=== PATIENT | male | born 1965 ===

== ENCOUNTER 2021-05-02 09:06 | Inpatient (IN) | payer BC ==
[~2021-05-02] VITALS: Ht 177.8 cm; Wt 78.9 kg
[~2021-05-02 09:06] MED LIST: CYCL10 PO; DIAZ2; METPRE4DP PO
[2021-05-02 10:29] LABS: Alanine Aminotransfer (ALT/SGP 108 U/L (12-78); Albumin, Blood 3.3 g/dL (3.4-5.0); Albumin/Globulin Ratio 0.8 (0.8-1.8); Alk Phos 58 U/L (50-136); Anion Gap 8 mmol/L (6-16); Aspartate Aminotrans (AST/SGOT 105 U/L (12-37); Bilirubin, Total 0.7 mg/dL (0.1-1.0); Blood Urea Nitrogen 17 mg/dL (8-24); Bun/Creatinine Ratio 16.5 (12.0-20.0); CO2, Blood 25 mmol/L (21-32); CPK Creatine Kinase 244 U/L (39-308); Calcium, Blood 8.6 mg/dL (8.5-10.1); Chloride, Blood 99 mmol/L (98-108); Creatinine, Blood 1.03 mg/dL (0.60-1.20); Globulin, Blood 3.9 g/dL (2.2-4.0); Glomerular Filtration Rate >60 (60-); Glucose, Blood 105 mg/dL (70-99); Potassium, Blood 3.5 mmol/L (3.5-5.5); Sodium, Blood 132 mmol/L (136-145); Total Protein, Blood 7.2 g/dL (6.4-8.2)
[2021-05-02] MEDS ORDERED: CEFDINIR300 M4 PO (16:25)
[2021-05-02] MEDS ORDERED: AZIT250 PO (16:25)
[2021-05-02] MEDS ORDERED: Stromectol3 MG PO (18:13)
--- NOTE | 2021-05-02 18:30 | NUR ---
Assumed Care Received report from HOLLEY Walters RN. Patient arrived via gurney, self transferred to bed. A/O, independent. Denies pain, nausea, vomiting. Arrived with 3L O2, sats at 88-90, oxygen increased to 4L. Settled to room, call light in reach. Bed in lowest position. Patient calls appropriately for needs. Home meds in room.
[2021-05-02 19:40] LABS: BASOPHILS ABSOLUTE AUTO 0.02 K/mm3 (0.00-0.23); BASOPHILS PERCENT AUTO 1 % (0-2); EOSINOPHILS PERCENT AUTO 0 % (0-6); Hematocrit 49.1 % (37.0-53.0); Hemoglobin 16.4 g/dL (13.5-17.5); IMMATURE GRAN ABSOLUTE AUTO 0.01 K/mm3 (0.00-0.10); IMMATURE GRAN PERCENT AUTO 0 % (0-1); LYMPHOCYTES ABSOLUTE AUTO 0.87 K/mm3 (0.84-5.20); LYMPHOCYTES PERCENT AUTO 21 % (21-46); MONOCYTES PERCENT AUTO 12 % (4-13); Mean Corpuscular HGB 29.6 pg (26.0-34.0); Mean Corpuscular HGB Conc 33.4 g/dL (31.5-36.5); Mean Corpuscular Volume 89 fL (80-100); Mean Platelet Volume 9.4 fL (9.1-12.4); NEUTROPHILS ABSOLUTE AUTO 2.73 K/mm3 (1.96-9.15); NEUTROPHILS PERCENT AUTO 66 % (41-73); Platelet Count 282 K/mm3 (150-400); RDW Coefficient Variation 12.5 % (11.7-14.2); RDW Standard Deviation 41.1 fL (35.1-46.3); Red Blood Cell Count 5.54 M/mm3 (4.30-5.90); White Blood Cell Count 4.13 K/mm3 (4.00-11.30)
--- NOTE | 2021-05-03 03:21 | NUR ---
PT DESATURATED PT DID DESATURATE TO MID 80'S% O2 SAT. I DID CALL RESPIRATORY THERAPY FOR ASSISTANCE. O2 WAS SET TO 15 LPM WITH A NON-REBREATHER. RESPIRATORY THERAPY WAS ABLE TO REMOVE NON-REBREATHER AND JUST GO WITH A HIGH FLOW O2 CANNULA. PT IS STILL ON 15 LPM O2
--- NOTE | 2021-05-03 03:58 | NUR ---
SHIFT SUMMARY ADMITTED FOR COVID+. FULL CODE. DROPLET PRECAUTIONS FOR COVID+. TELEMETRY: NSR @ 72 BPM. HE REPORTS DIARRHEA. HE DESATURATED ONCE THIS SHIFT (SEE PREVIOUS NOTE). CONTINUOUS PULSE OX IN PLACE. NOW ON 15 LPM HIGH FLOW O2 VIA NC. IVERMECTIN IS SCHEDULED, SOLUMEDROL IS SCHEDULED. IV ANTIB RX ARE SCHEDULED. HEPARIN IS SCHEDULED. HE REPORTS DIARRHEA. CARDIAC DIET. A&O X4, INDEPENDENT.
[2021-05-03 06:39] LABS: BASOPHILS PERCENT AUTO 0 % (0-2); EOSINOPHILS PERCENT AUTO 0 % (0-6); Hematocrit 43.2 % (37.0-53.0); Hemoglobin 14.8 g/dL (13.5-17.5); IMMATURE GRAN ABSOLUTE AUTO 0.03 K/mm3 (0.00-0.10); IMMATURE GRAN PERCENT AUTO 1 % (0-1); LYMPHOCYTES PERCENT AUTO 23 % (21-46); MONOCYTES ABSOLUTE AUTO 0.32 K/mm3 (0.16-1.47); MONOCYTES PERCENT AUTO 12 % (4-13); Mean Corpuscular HGB 29.6 pg (26.0-34.0); Mean Corpuscular HGB Conc 34.3 g/dL (31.5-36.5); Mean Corpuscular Volume 86 fL (80-100); NEUTROPHILS ABSOLUTE AUTO 1.63 K/mm3 (1.96-9.15); NEUTROPHILS PERCENT AUTO 63 % (41-73); Platelet Count 312 K/mm3 (150-400); RDW Coefficient Variation 12.2 % (11.7-14.2); RDW Standard Deviation 38.9 fL (35.1-46.3); White Blood Cell Count 2.58 K/mm3 (4.00-11.30)
[2021-05-03 07:20] LABS: Alanine Aminotransfer (ALT/SGP 102 U/L (12-78); Albumin, Blood 2.7 g/dL (3.4-5.0); Albumin/Globulin Ratio 0.8 (0.8-1.8); Alk Phos 50 U/L (50-136); Anion Gap 8 mmol/L (6-16); Aspartate Aminotrans (AST/SGOT 91 U/L (12-37); Bilirubin, Total 0.5 mg/dL (0.1-1.0); Blood Urea Nitrogen 20 mg/dL (8-24); Bun/Creatinine Ratio 27.3 (12.0-20.0); CO2, Blood 24 mmol/L (21-32); Calcium, Blood 8.4 mg/dL (8.5-10.1); Chloride, Blood 106 mmol/L (98-108); Creatinine, Blood 0.73 mg/dL (0.60-1.20); Globulin, Blood 3.6 g/dL (2.2-4.0); Glomerular Filtration Rate >60 (60-); Glucose, Blood 140 mg/dL (70-99); Potassium, Blood 3.9 mmol/L (3.5-5.5); Sodium, Blood 138 mmol/L (136-145); Total Protein, Blood 6.3 g/dL (6.4-8.2)
[2021-05-03 09:10] LABS: HBSAG SCREEN Negative (Negative); HEP B CORE AB, TOT Negative (Negative); HEP C VIRUS AB <0.1 (0.0-0.9)
--- NOTE | 2021-05-03 11:41 | NUR ---
Admit: 05/02/21 Discharge: TBD PCP: Beatris Pelayo Home [facility]: None DME: Oxygen equipment delivered 05/01/21 Family contact: Tila [phone]
--- NOTE | 2021-05-03 13:33 | NUR ---
FLUTICASONE NASAL SPRAY PATIENT REPORTS TAKING THIS MED AT HOME FOR STUFFY NOSE. T.O. FROM DR. KLEIN FOR 2 SPRAYS IN EACH NOSTRILS DAILY. EMAR UPDATED.
--- NOTE | 2021-05-03 18:01 | NUR ---
Shift Summary A/Ox4, up independently in room. O2 sats were 85-88% on 15L HF+nonrebreather this am, switched to Airvo 50L FiO2 85% initially and has since been titrated down to FiO2 65%. Sats maintaining 93-94%. Cooperative with repositioning Q2H, proning, and sitting in chair. Appetite is decent, did refuse dinner. Denied pain, nausea, vomiting. C/O some diarrhea, though have not witnessed it. Using urinal at the bedside. Tele: SR 80's. Continuous biox on. WCTM.
--- NOTE | 2021-05-04 05:05 | NUR ---
SHIFT SUMMARY ADMITTED FOR COVID. FULL CODE. PULSE OX IN PLACE. TELEMETRY: NSR @ [address] @ 65%. CALL BUTTON WITHIN REACH. PT STATES THE AIRVO MADE HIM HAVE A MUCH BETTER NIGHT. HE DOES NOT APPEAR TO BE IN DISTRESS
--- NOTE | 2021-05-04 17:37 | NUR ---
PT HAS NO ACUTE CHANGES AT THIS TIME WILL CONTINUE TO MONITOR. PT INDEPENDENT IN ROOM AND AOX4. PT CONTINUES ON AIRVO AT 50L RUNNING AT MID 90s O2 AT THIS TIME. CALL LIGHT IS WITHIN REACH WILL CONTINUE TO MONITOR.
--- NOTE | 2021-05-05 04:10 | NUR ---
SHIFT SUMMARY ADMITTED FOR COVID. FULL CODE. PLAN IS TO CONTINUE TITRATING OXYGEN NEEDS DOWN SO PT CAN DC HOME TO HIS FAMILY. TELEMETRY: NSR @ 81 BPM. HEPARIN, IVERMECTIN, AND SOLUMEDROL ARE SCHEDULED. PT'S AIRVO NEEDS HAVE BEEN TRENDING DOWN SOME, AND THE PT IS RESPONDING POSITIVELY TO TX. HE DENIES NEEDS OR DISCOMFORT THIS SHIFT. HE DOES DESATURATE IMMEDIATELY WHEN HIS AIRVO CANNULA BECOMES DETACHED FROM HIS NARES. NO NEW CONCERNS THIS SHIFT
--- NOTE | 2021-05-05 06:03 | NUR ---
CALLED RT REGARDING AIRVO I DID INFORM THEM THAT I AM UNFAMILIAR WITH AIRVO DEVICE AND I NEEDED ASSISTANCE WITH A WATER BAG CHANGE. I RECEIVED INSTRUCTIONS VIA VOICERA TO CHANGE BAG. I AM CONTINUING TO MONITOR O2 SAT. I WILL INFORM DAY RN.
[2021-05-05 06:18] LABS: BASOPHILS ABSOLUTE AUTO 0.02 K/mm3 (0.00-0.23); BASOPHILS PERCENT AUTO 0 % (0-2); EOSINOPHILS PERCENT AUTO 0 % (0-6); Hematocrit 43.6 % (37.0-53.0); Hemoglobin 14.8 g/dL (13.5-17.5); IMMATURE GRAN ABSOLUTE AUTO 0.06 K/mm3 (0.00-0.10); IMMATURE GRAN PERCENT AUTO 1 % (0-1); LYMPHOCYTES PERCENT AUTO 10 % (21-46); MONOCYTES ABSOLUTE AUTO 0.62 K/mm3 (0.16-1.47); MONOCYTES PERCENT AUTO 9 % (4-13); Mean Corpuscular HGB 29.7 pg (26.0-34.0); Mean Corpuscular HGB Conc 33.9 g/dL (31.5-36.5); Mean Corpuscular Volume 87 fL (80-100); Mean Platelet Volume 8.9 fL (9.1-12.4); NEUTROPHILS ABSOLUTE AUTO 5.41 K/mm3 (1.96-9.15); NEUTROPHILS PERCENT AUTO 79 % (41-73); Platelet Count 483 K/mm3 (150-400); RDW Standard Deviation 38.5 fL (35.1-46.3); Red Blood Cell Count 4.99 M/mm3 (4.30-5.90); White Blood Cell Count 6.81 K/mm3 (4.00-11.30)
[2021-05-05 06:43] LABS: Alanine Aminotransfer (ALT/SGP 101 U/L (12-78); Albumin, Blood 2.8 g/dL (3.4-5.0); Albumin/Globulin Ratio 0.8 (0.8-1.8); Alk Phos 53 U/L (50-136); Anion Gap 6 mmol/L (6-16); Aspartate Aminotrans (AST/SGOT 47 U/L (12-37); Bilirubin, Total 0.5 mg/dL (0.1-1.0); Blood Urea Nitrogen 20 mg/dL (8-24); Bun/Creatinine Ratio 26.1 (12.0-20.0); CO2, Blood 26 mmol/L (21-32); Calcium, Blood 8.6 mg/dL (8.5-10.1); Chloride, Blood 107 mmol/L (98-108); Creatinine, Blood 0.77 mg/dL (0.60-1.20); Globulin, Blood 3.6 g/dL (2.2-4.0); Glomerular Filtration Rate >60 (60-); Glucose, Blood 129 mg/dL (70-99); Potassium, Blood 3.9 mmol/L (3.5-5.5); Sodium, Blood 139 mmol/L (136-145); Total Protein, Blood 6.4 g/dL (6.4-8.2)
--- NOTE | 2021-05-05 13:30 | NUR ---
Update 05/04/21: Per chart review with Dr. Valente, pt. not yet appropriate for discharge. Will continue to follow patient's care and address discharge and care coordination needs as indicated.
--- NOTE | 2021-05-05 17:41 | NUR ---
SHIFT SUMMARY PT HAS BEEN INDEPENDENT IN THE ROOM TODAY. PT HAS SPENT TIME IN THE CHAIR AND HAS BEEN PRONING IN BED WELL. PT'S AIRVO HAS BEEN TITRATED DOWN TO 45L AND 45% TODAY. PT HAS BEEN COMPLIANT WITH MEDICATIONS. PT HAS BEEN USING THE URINAL AND HAS MAINTAINED SATURATION ABOVE 90%. VS STABLE OTHERWISE AND PT IS RESTING IN HIS ROOM AT THSI TIME
--- NOTE | 2021-05-06 05:05 | NUR ---
PATIENT TOLERATING AIRVO AT 45% / 45L 02. SATURATIONS RANGED FROM 90-94% WITH PATIENT GETTING IN AND OUT OF BED TO BATHROOM, CHAIR, AND AT REST. NO COMPLAINTS OF PAIN OR DISCOMFORT OVERNIGHT. PATIENT SLEPT PRONE WHEN HE WENT TO BED.
[2021-05-06 06:30] LABS: BASOPHILS ABSOLUTE AUTO 0.01 K/mm3 (0.00-0.23); BASOPHILS PERCENT AUTO 0 % (0-2); EOSINOPHILS PERCENT AUTO 0 % (0-6); Hematocrit 41.9 % (37.0-53.0); Hemoglobin 14.1 g/dL (13.5-17.5); IMMATURE GRAN ABSOLUTE AUTO 0.07 K/mm3 (0.00-0.10); IMMATURE GRAN PERCENT AUTO 1 % (0-1); LYMPHOCYTES ABSOLUTE AUTO 0.58 K/mm3 (0.84-5.20); LYMPHOCYTES PERCENT AUTO 9 % (21-46); MONOCYTES ABSOLUTE AUTO 0.47 K/mm3 (0.16-1.47); MONOCYTES PERCENT AUTO 8 % (4-13); Mean Corpuscular HGB 29.2 pg (26.0-34.0); Mean Corpuscular HGB Conc 33.7 g/dL (31.5-36.5); Mean Corpuscular Volume 87 fL (80-100); Mean Platelet Volume 8.8 fL (9.1-12.4); NEUTROPHILS ABSOLUTE AUTO 5.01 K/mm3 (1.96-9.15); NEUTROPHILS PERCENT AUTO 82 % (41-73); Platelet Count 538 K/mm3 (150-400); RDW Coefficient Variation 11.9 % (11.7-14.2); RDW Standard Deviation 38.5 fL (35.1-46.3); Red Blood Cell Count 4.83 M/mm3 (4.30-5.90); White Blood Cell Count 6.14 K/mm3 (4.00-11.30)
[2021-05-06 06:57] LABS: Alanine Aminotransfer (ALT/SGP 162 U/L (12-78); Albumin, Blood 2.7 g/dL (3.4-5.0); Albumin/Globulin Ratio 0.8 (0.8-1.8); Alk Phos 54 U/L (50-136); Anion Gap 7 mmol/L (6-16); Aspartate Aminotrans (AST/SGOT 68 U/L (12-37); Bilirubin, Total 0.5 mg/dL (0.1-1.0); Blood Urea Nitrogen 19 mg/dL (8-24); Bun/Creatinine Ratio 26.4 (12.0-20.0); CO2, Blood 25 mmol/L (21-32); Chloride, Blood 106 mmol/L (98-108); Creatinine, Blood 0.72 mg/dL (0.60-1.20); Globulin, Blood 3.2 g/dL (2.2-4.0); Glomerular Filtration Rate >60 (60-); Glucose, Blood 125 mg/dL (70-99); Potassium, Blood 4.2 mmol/L (3.5-5.5); Sodium, Blood 138 mmol/L (136-145); Total Protein, Blood 5.9 g/dL (6.4-8.2)
--- NOTE | 2021-05-06 17:01 | NUR ---
SHIFT SUMMARY PATIENT A/O, COOPERATIVE WITH CARE THROUGHOUT THIS SHIFT. PATIENT INDEPENDENT IN THE ROOM. PATIENT REMAINS ON 45L 45% THROUGHOUT THIS SHIFT. O2 > 90% WITH PATIENT AT REST. PATIENT DESATS TO HIGH 80S WITH ACTIVITY, QUICKLY RETURNING ONCE AT REST. NO ACUTE CHANGES THIS SHIFT. PATIENT DENIES NEEDS THROUGHOUT THIS SHIFT. PATIENT CURRENTLY LYING IN BED SLEEPING.
--- NOTE | 2021-05-07 03:56 | NUR ---
SHIFT SUMMARY PT HAS RESTED T/O THE NIGHT, HE HAS DENIED NEEDS. PT O2 NEEDS REMAIN THE SAME T/O THE SHIFT. AIRVO IN PLACE WITH 45%. SATS GREATER THAN 92% ON AIDEE BIOX. PT DOES OCCASIONALLY DESAT WITH AMBULATION BUT HAS BEEN ABLE TO QUICKLY RECOVER. PT HAS PRODUCTIVE COUGH. NO GI COMPLAINTS. INDEPENENT IN THE ROOM. NO ACUTE CHANGES. BED IN LOWET POSITION, CALL LIGHT WITHIN REACH.
[2021-05-07 05:45] LABS: BASOPHILS PERCENT AUTO 0 % (0-2); EOSINOPHILS PERCENT AUTO 0 % (0-6); Hemoglobin 14.5 g/dL (13.5-17.5); IMMATURE GRAN ABSOLUTE AUTO 0.09 K/mm3 (0.00-0.10); IMMATURE GRAN PERCENT AUTO 1 % (0-1); LYMPHOCYTES ABSOLUTE AUTO 0.51 K/mm3 (0.84-5.20); LYMPHOCYTES PERCENT AUTO 8 % (21-46); MONOCYTES ABSOLUTE AUTO 0.49 K/mm3 (0.16-1.47); MONOCYTES PERCENT AUTO 7 % (4-13); Mean Corpuscular HGB 29.5 pg (26.0-34.0); Mean Corpuscular HGB Conc 33.7 g/dL (31.5-36.5); Mean Corpuscular Volume 88 fL (80-100); Mean Platelet Volume 8.7 fL (9.1-12.4); NEUTROPHILS ABSOLUTE AUTO 5.67 K/mm3 (1.96-9.15); NEUTROPHILS PERCENT AUTO 84 % (41-73); Platelet Count 574 K/mm3 (150-400); RDW Coefficient Variation 11.9 % (11.7-14.2); RDW Standard Deviation 38.3 fL (35.1-46.3); Red Blood Cell Count 4.91 M/mm3 (4.30-5.90); White Blood Cell Count 6.76 K/mm3 (4.00-11.30)
[2021-05-07 06:17] LABS: Alanine Aminotransfer (ALT/SGP 199 U/L (12-78); Albumin, Blood 2.6 g/dL (3.4-5.0); Albumin/Globulin Ratio 0.8 (0.8-1.8); Alk Phos 57 U/L (50-136); Anion Gap 7 mmol/L (6-16); Aspartate Aminotrans (AST/SGOT 69 U/L (12-37); Bilirubin, Total 0.6 mg/dL (0.1-1.0); Blood Urea Nitrogen 21 mg/dL (8-24); Bun/Creatinine Ratio 29.8 (12.0-20.0); CO2, Blood 24 mmol/L (21-32); Calcium, Blood 8.3 mg/dL (8.5-10.1); Chloride, Blood 108 mmol/L (98-108); Creatinine, Blood 0.71 mg/dL (0.60-1.20); Globulin, Blood 3.3 g/dL (2.2-4.0); Glomerular Filtration Rate >60 (60-); Glucose, Blood 110 mg/dL (70-99); Potassium, Blood 4.3 mmol/L (3.5-5.5); Sodium, Blood 139 mmol/L (136-145); Total Protein, Blood 5.9 g/dL (6.4-8.2)
--- NOTE | 2021-05-07 06:39 | NUR ---
SATS PT O2 SATS DROPPING DOWN TO THE MID 80'S. ON 45% AIRVO, PT IS RESTING IN BED AND DENIES RESPIRATORY DISTRESS. RESPIRATORY CALLED AND NOTIFIED, SPOKE WITH SHIRA AGUIRRE WHO STATES THAT THEY WILL BE UP TO ASSESS PT.
--- NOTE | 2021-05-07 06:57 | NUR ---
O2 SATS RT IN ROOM TO ASSESS PT, O2 HAS NOW RECOVERED TO ABOVE 90% ON 45% AIRVO.
--- NOTE | 2021-05-07 17:24 | NUR ---
SHIFT SUMMARY PATIENT ALERT AND ORIENTED, INDEPENDENT IN THE ROOM THROUGHOUT THIS SHIFT. PATIENT ON 45L @ 45% ON AIRVO THIS SHIFT. PATIENT DENIES SOB. PATIENT TITRATED TO 45L @ 40%, SATS DROPPED AND MAINTAINED IN THE 80S, RETURNED TO 45L @ 45%. PATIENT CALM AND COOPERATIVE WITH CARE THROUGHOUT THIS SHIFT. PATIENT CURRENTLY LYING IN BED TALKING ON THE TELEPHONE.
--- NOTE | 2021-05-08 04:23 | NUR ---
SHIFT SUMMARY NO ACUTE CHANGES TO REPORT THIS SHIFT. PT REMAINS ON CURRENT HEATED HIGH FLOW SETTINGS OF 45%. HE IS MAINTAINING SATS ABOVE 92%. PT EDUCATED ON THE IMPORTANCE OF SELF PRONINING WHEN NEEDED. PT INDEPENDENT IN THE ROOM, DENIES NEEDS. IV SOLUMEDROL PER ORDERS. BED IN LOWEST POSITION, CALL LIGHT WITHIN REACH.
[2021-05-08 05:22] LABS: BASOPHILS ABSOLUTE AUTO 0.01 K/mm3 (0.00-0.23); BASOPHILS PERCENT AUTO 0 % (0-2); EOSINOPHILS PERCENT AUTO 0 % (0-6); Hematocrit 42.2 % (37.0-53.0); Hemoglobin 14.4 g/dL (13.5-17.5); IMMATURE GRAN ABSOLUTE AUTO 0.14 K/mm3 (0.00-0.10); IMMATURE GRAN PERCENT AUTO 2 % (0-1); LYMPHOCYTES ABSOLUTE AUTO 0.53 K/mm3 (0.84-5.20); LYMPHOCYTES PERCENT AUTO 7 % (21-46); MONOCYTES ABSOLUTE AUTO 0.46 K/mm3 (0.16-1.47); MONOCYTES PERCENT AUTO 6 % (4-13); Mean Corpuscular HGB 29.6 pg (26.0-34.0); Mean Corpuscular HGB Conc 34.1 g/dL (31.5-36.5); Mean Corpuscular Volume 87 fL (80-100); Mean Platelet Volume 8.8 fL (9.1-12.4); NEUTROPHILS ABSOLUTE AUTO 6.18 K/mm3 (1.96-9.15); NEUTROPHILS PERCENT AUTO 85 % (41-73); Platelet Count 636 K/mm3 (150-400); RDW Coefficient Variation 11.8 % (11.7-14.2); Red Blood Cell Count 4.86 M/mm3 (4.30-5.90); White Blood Cell Count 7.32 K/mm3 (4.00-11.30)
--- NOTE | 2021-05-08 15:14 | NUR ---
Update 05/08/21: Per chart review, pt. remains on high flow oxygen FiO2 45% to maintain oxygen saturation of 90-93% today. Not yet appropriate for discharge. Discharge goal to get him to 2-4 LPM oxygen. Pt. has oxygen equipment at home. Continue to monitor patient's progress and assist in discharge planning as needed.
--- NOTE | 2021-05-08 17:49 | NUR ---
PATIENT IS ALERT AND ORIENTED AND COOPERATIVE WITH CARE. ON AIRVO 40L 45%FiO2. HE WAS DESATING TO 87% THIS MORNING PERIODICALLY WITH COUGHING AND AMBULATION. THIS AFTERNOON HIS CONTINUOUS PULSE OX HAS SHOWN THAT HE HAS BEEN STEADY ABOVE 93%. WILL CONTINUE TO MONITOR
[2021-05-09 05:40] LABS: BASOPHILS ABSOLUTE AUTO 0.01 K/mm3 (0.00-0.23); BASOPHILS PERCENT AUTO 0 % (0-2); EOSINOPHILS PERCENT AUTO 0 % (0-6); Hematocrit 43.1 % (37.0-53.0); Hemoglobin 14.6 g/dL (13.5-17.5); IMMATURE GRAN ABSOLUTE AUTO 0.12 K/mm3 (0.00-0.10); IMMATURE GRAN PERCENT AUTO 2 % (0-1); LYMPHOCYTES ABSOLUTE AUTO 0.65 K/mm3 (0.84-5.20); LYMPHOCYTES PERCENT AUTO 9 % (21-46); MONOCYTES ABSOLUTE AUTO 0.43 K/mm3 (0.16-1.47); MONOCYTES PERCENT AUTO 6 % (4-13); Mean Corpuscular HGB Conc 33.9 g/dL (31.5-36.5); Mean Corpuscular Volume 86 fL (80-100); Mean Platelet Volume 8.7 fL (9.1-12.4); NEUTROPHILS ABSOLUTE AUTO 5.96 K/mm3 (1.96-9.15); NEUTROPHILS PERCENT AUTO 83 % (41-73); Platelet Count 670 K/mm3 (150-400); RDW Coefficient Variation 11.8 % (11.7-14.2); Red Blood Cell Count 5.03 M/mm3 (4.30-5.90); White Blood Cell Count 7.17 K/mm3 (4.00-11.30)
[2021-05-09 05:59] LABS: Alanine Aminotransfer (ALT/SGP 299 U/L (12-78); Albumin, Blood 2.6 g/dL (3.4-5.0); Albumin/Globulin Ratio 0.7 (0.8-1.8); Alk Phos 57 U/L (50-136); Anion Gap 7 mmol/L (6-16); Aspartate Aminotrans (AST/SGOT 62 U/L (12-37); Bilirubin, Total 0.6 mg/dL (0.1-1.0); Blood Urea Nitrogen 21 mg/dL (8-24); CO2, Blood 23 mmol/L (21-32); Calcium, Blood 8.1 mg/dL (8.5-10.1); Chloride, Blood 108 mmol/L (98-108); Creatinine, Blood 0.73 mg/dL (0.60-1.20); Ferritin, Serum 1109 ng/mL (26-388); Globulin, Blood 3.5 g/dL (2.2-4.0); Glomerular Filtration Rate >60 (60-); Glucose, Blood 105 mg/dL (70-99); Lactate Dehydrogenase (Ld),Bld 364 U/L (100-240); Magnesium, Blood 2.9 mg/dL (1.6-2.4); Phosphorus, Blood 4.1 mg/dL (2.5-4.9); Potassium, Blood 4.6 mmol/L (3.5-5.5); Sodium, Blood 138 mmol/L (136-145); Total Protein, Blood 6.1 g/dL (6.4-8.2)
--- NOTE | 2021-05-09 06:21 | NUR ---
SHIFT SUMMARY PATIENT ALERT AND ORIENTED. HAD NO COMPLAINTS OF PAIN OR SHORTNESS OF BREATH. AIRVO INCREASED DUE TO PATIENT DESATING. IV PATENT AND FLUSHED. BED IN LOWEST POSITION WITH WHEELS LOCKED AND ALARM ON. CALL LIGHT WITHIN REACH. REPORT GIVEN TO ONCOMING RN.
--- NOTE | 2021-05-09 17:12 | NUR ---
PATIENT IS ALERT AND ORIENTED AND COOPERATIVE WITH CARE. ON AIRVO 40L 45% FIO2. HE IS INDEPENDENT TO THE BSC. NO C/O PAIN. NO NEW CONCERNS THIS SHIFT.
[2021-05-10 05:03] LABS: BASOPHILS ABSOLUTE AUTO 0.01 K/mm3 (0.00-0.23); BASOPHILS PERCENT AUTO 0 % (0-2); EOSINOPHILS PERCENT AUTO 0 % (0-6); Hematocrit 43.5 % (37.0-53.0); Hemoglobin 14.8 g/dL (13.5-17.5); IMMATURE GRAN ABSOLUTE AUTO 0.15 K/mm3 (0.00-0.10); IMMATURE GRAN PERCENT AUTO 2 % (0-1); LYMPHOCYTES ABSOLUTE AUTO 0.62 K/mm3 (0.84-5.20); LYMPHOCYTES PERCENT AUTO 8 % (21-46); MONOCYTES ABSOLUTE AUTO 0.47 K/mm3 (0.16-1.47); MONOCYTES PERCENT AUTO 6 % (4-13); Mean Corpuscular HGB 29.4 pg (26.0-34.0); Mean Corpuscular Volume 87 fL (80-100); Mean Platelet Volume 8.7 fL (9.1-12.4); NEUTROPHILS ABSOLUTE AUTO 6.85 K/mm3 (1.96-9.15); NEUTROPHILS PERCENT AUTO 85 % (41-73); Platelet Count 694 K/mm3 (150-400); RDW Coefficient Variation 11.7 % (11.7-14.2); Red Blood Cell Count 5.03 M/mm3 (4.30-5.90)
[2021-05-10 05:25] LABS: Alanine Aminotransfer (ALT/SGP 303 U/L (12-78); Albumin, Blood 2.6 g/dL (3.4-5.0); Albumin/Globulin Ratio 0.7 (0.8-1.8); Alk Phos 61 U/L (50-136); Anion Gap 7 mmol/L (6-16); Aspartate Aminotrans (AST/SGOT 54 U/L (12-37); Bilirubin, Total 0.7 mg/dL (0.1-1.0); Blood Urea Nitrogen 22 mg/dL (8-24); Bun/Creatinine Ratio 30.5 (12.0-20.0); CO2, Blood 23 mmol/L (21-32); Calcium, Blood 8.4 mg/dL (8.5-10.1); Chloride, Blood 108 mmol/L (98-108); Creatinine, Blood 0.72 mg/dL (0.60-1.20); Globulin, Blood 3.7 g/dL (2.2-4.0); Glomerular Filtration Rate >60 (60-); Glucose, Blood 109 mg/dL (70-99); Potassium, Blood 4.2 mmol/L (3.5-5.5); Sodium, Blood 138 mmol/L (136-145); Total Protein, Blood 6.3 g/dL (6.4-8.2)
--- NOTE | 2021-05-10 06:20 | NUR ---
SHIFT SUMMARY PATIENT IS ALERT AND ORIENTED. NO ACUTE ISSUES NOTED. IV PATENT AND FLUSHED. BED IN LOWEST POSITION WITH WHEELS LOCKED. CALL LIGHT WITHIN REACH. REPORT GIVEN TO ONCOMING RN.
--- NOTE | 2021-05-10 18:19 | NUR ---
SHIFT SUMMARY PATIENT INDEPENDENT AND SITTING UP IN BED. DENIES PAIN. O2 DESATS BELOW 85 WITH WALKING TO THE BATHROOM OR POSITION CHANGES. IV FLUSHED AND PATENT.
[2021-05-11 05:51] LABS: Alanine Aminotransfer (ALT/SGP 497 U/L (12-78); Albumin, Blood 2.6 g/dL (3.4-5.0); Albumin/Globulin Ratio 0.7 (0.8-1.8); Alk Phos 66 U/L (50-136); Anion Gap 6 mmol/L (6-16); Aspartate Aminotrans (AST/SGOT 123 U/L (12-37); Bilirubin, Total 0.7 mg/dL (0.1-1.0); Blood Urea Nitrogen 24 mg/dL (8-24); Bun/Creatinine Ratio 33.4 (12.0-20.0); CO2, Blood 24 mmol/L (21-32); Chloride, Blood 107 mmol/L (98-108); Creatinine, Blood 0.72 mg/dL (0.60-1.20); Globulin, Blood 3.6 g/dL (2.2-4.0); Glomerular Filtration Rate >60 (60-); Glucose, Blood 116 mg/dL (70-99); Potassium, Blood 4.6 mmol/L (3.5-5.5); Sodium, Blood 137 mmol/L (136-145); Total Protein, Blood 6.2 g/dL (6.4-8.2)
--- NOTE | 2021-05-11 06:39 | NUR ---
SHIFT SUMMARY NO ACUTE CHANGES THIS SHIFT, NO C/O ANY KIND, INDEP IN ROOM, SLEPT T/O THE NIGHT, CALL LIGHT IN REACH, WILL CONT TO MONITOR UNTIL REPOT GIVEN TO DAY RN.
--- NOTE | 2021-05-11 17:17 | NUR ---
SHIFT SUMMARY UNABLE TO TOLERATED WEANING OF O2. 40L 60%. INDEP WITH I.S. OBTAINING 1250ML ON I.S. AND FLUTTER ALSO AT BEDSIDE. INDEP IN ROOM. UP TO CHAIR INTERMITTENTLY AD ZAY. STATES BREATHING "FEELS THE SAME" YESTERDAY. MURMUR AUSCULTATED.
--- NOTE | 2021-05-11 18:36 | NUR ---
Update 05/11/21: Per chart review with Dr. Contreras, pt. continues to struggle with hypoxia. 94% on 40 L, 60% FiO2. Not appropriate for discharge at this time. When pt. is appropriate for discharge he might likely need O2 sent to [facility] and samples of Xarelto/Elquise or discount care if prescribed at time of dischare. No other anticipated needs at this time.
--- NOTE | 2021-05-12 04:05 | NUR ---
SHIFT SUMMARY NO ACUTE CHANGES THIS SHIFT, MEDICATED FOR HEARTBURN, NO OTHER C/O ANY KIND, SLEPT T/O THE NIGHT & AT THIS TIME, CALL LIGHT IN REACH, WILL CONT TO MONITOR UNTIL REPORT GIVEN TO DAY RN,
--- NOTE | 2021-05-12 11:26 | NUR ---
Provided spiritual care visit - companionship and conversation, mainly related to his interest in vehicles. We had a nice visit that allowed me to provide encouragement and hope for his ongoing recovery.
--- NOTE | 2021-05-12 11:26 | NUR ---
Update 05/12/21: Per chart review, patient's condition has remained consistently the same with minimal improvement. Needs at discharge - still anticipating need for O2 sent to [facility] and possible need for Xarelto or Eliquise sampes and discount card.
--- NOTE | 2021-05-12 17:57 | NUR ---
NO ACUTE CHANGES THIS SHIFT. PATIENT CONTINUES TO ON AIRVO AT 40L AT 45% FIO2. INDEPENDENT IN ROOM.
[2021-05-13 05:07] LABS: BASOPHILS ABSOLUTE AUTO 0.01 K/mm3 (0.00-0.23); BASOPHILS PERCENT AUTO 0 % (0-2); EOSINOPHILS PERCENT AUTO 0 % (0-6); Hematocrit 43.7 % (37.0-53.0); Hemoglobin 14.9 g/dL (13.5-17.5); IMMATURE GRAN ABSOLUTE AUTO 0.24 K/mm3 (0.00-0.10); IMMATURE GRAN PERCENT AUTO 3 % (0-1); LYMPHOCYTES ABSOLUTE AUTO 0.77 K/mm3 (0.84-5.20); LYMPHOCYTES PERCENT AUTO 9 % (21-46); MONOCYTES ABSOLUTE AUTO 0.53 K/mm3 (0.16-1.47); MONOCYTES PERCENT AUTO 6 % (4-13); Mean Corpuscular HGB 29.3 pg (26.0-34.0); Mean Corpuscular HGB Conc 34.1 g/dL (31.5-36.5); Mean Corpuscular Volume 86 fL (80-100); Mean Platelet Volume 8.6 fL (9.1-12.4); NEUTROPHILS ABSOLUTE AUTO 7.11 K/mm3 (1.96-9.15); NEUTROPHILS PERCENT AUTO 82 % (41-73); Platelet Count 643 K/mm3 (150-400); RDW Coefficient Variation 11.7 % (11.7-14.2); RDW Standard Deviation 36.4 fL (35.1-46.3); Red Blood Cell Count 5.08 M/mm3 (4.30-5.90); White Blood Cell Count 8.66 K/mm3 (4.00-11.30)
[2021-05-13 05:32] LABS: Alanine Aminotransfer (ALT/SGP 466 U/L (12-78); Albumin, Blood 2.6 g/dL (3.4-5.0); Albumin/Globulin Ratio 0.8 (0.8-1.8); Alk Phos 70 U/L (50-136); Anion Gap 7 mmol/L (6-16); Aspartate Aminotrans (AST/SGOT 57 U/L (12-37); Bilirubin, Total 0.7 mg/dL (0.1-1.0); Blood Urea Nitrogen 24 mg/dL (8-24); Bun/Creatinine Ratio 33.9 (12.0-20.0); CO2, Blood 24 mmol/L (21-32); Calcium, Blood 8.5 mg/dL (8.5-10.1); Chloride, Blood 105 mmol/L (98-108); Creatinine, Blood 0.71 mg/dL (0.60-1.20); Globulin, Blood 3.4 g/dL (2.2-4.0); Glomerular Filtration Rate >60 (60-); Glucose, Blood 111 mg/dL (70-99); Potassium, Blood 4.3 mmol/L (3.5-5.5); Sodium, Blood 136 mmol/L (136-145)
--- NOTE | 2021-05-13 05:43 | NUR ---
SHIFT SUMMARY A/O, ABLE TO MAKE NEEDS KNOWN. COOPERATIVE WITH CARE. CALLS AND ANSWERS QUESTIONS APPROPRIATELY. NO C/O PAIN/DISCOMFORT. STATES FEELING MUCH BETTER; LUNG SOUNDS APPEAR TO BE IMPROVING. HOPEFUL TO BE TAKEN OFF AIRVO SOON. AIRVO SETTINGS 40 LPM /c 40%FIO2. INDEPENDENT IN THE ROOM. NO ACUTE CHANGES NOTED. BED IN LOWEST POSITION. CALL LIGHT AND BELONGINGS WITHIN REACH. CONTINUE WITH CURRENT PLAN OF CARE.
--- NOTE | 2021-05-13 18:29 | NUR ---
PT REMAINS ALERT AND ORIENTED X4, IND IN ROOM AND MAKES NO C/O AT THIS TIME. SLOW TITRATION WITH RT FOR POTENTIAL DC WITHIN THE NEXT DAY OR TWO TAKING PLACE. STAFF WILL CONTINUE TO MONITOR FOR CHANGES.
--- NOTE | 2021-05-14 04:34 | NUR ---
SHIFT SUMMARY A/O, ABLE TO MAKE NEEDS KNOWN. COOPERATIVE WITH CARE. CALLS AND ANSWERS QUESTIONS APPROPRIATELY. NO C/O PAIN/DISCOMFORT. INDEPENDENT IN THE ROOM. STATES FEELS MUCH BETTER. HOPEFUL TO GO HOME SOON. NO ACUTE CHANGES NOTED OVERNIGHT. APPEARED TO REST MUCH OF THE NIGHT. BED REMAINS IN LOWEST POSITION. CALL LIGHT AND BELONGINGS WITHIN REACH. CONTINUE WITH CURRENT PLAN OF CARE.
[2021-05-14 05:37] LABS: BASOPHILS ABSOLUTE AUTO 0.02 K/mm3 (0.00-0.23); BASOPHILS PERCENT AUTO 0 % (0-2); EOSINOPHILS PERCENT AUTO 0 % (0-6); Hemoglobin 14.8 g/dL (13.5-17.5); IMMATURE GRAN ABSOLUTE AUTO 0.17 K/mm3 (0.00-0.10); IMMATURE GRAN PERCENT AUTO 2 % (0-1); LYMPHOCYTES ABSOLUTE AUTO 0.73 K/mm3 (0.84-5.20); LYMPHOCYTES PERCENT AUTO 9 % (21-46); MONOCYTES ABSOLUTE AUTO 0.55 K/mm3 (0.16-1.47); MONOCYTES PERCENT AUTO 7 % (4-13); Mean Corpuscular HGB 29.6 pg (26.0-34.0); Mean Corpuscular HGB Conc 34.4 g/dL (31.5-36.5); Mean Corpuscular Volume 86 fL (80-100); Mean Platelet Volume 8.7 fL (9.1-12.4); NEUTROPHILS ABSOLUTE AUTO 6.64 K/mm3 (1.96-9.15); NEUTROPHILS PERCENT AUTO 82 % (41-73); Platelet Count 590 K/mm3 (150-400); RDW Coefficient Variation 11.7 % (11.7-14.2); RDW Standard Deviation 36.3 fL (35.1-46.3); White Blood Cell Count 8.11 K/mm3 (4.00-11.30)
[2021-05-14 06:01] LABS: Alanine Aminotransfer (ALT/SGP 388 U/L (12-78); Albumin, Blood 2.6 g/dL (3.4-5.0); Albumin/Globulin Ratio 0.8 (0.8-1.8); Alk Phos 67 U/L (50-136); Anion Gap 6 mmol/L (6-16); Aspartate Aminotrans (AST/SGOT 34 U/L (12-37); Bilirubin, Total 0.5 mg/dL (0.1-1.0); Blood Urea Nitrogen 22 mg/dL (8-24); Bun/Creatinine Ratio 33.1 (12.0-20.0); CO2, Blood 24 mmol/L (21-32); Calcium, Blood 8.2 mg/dL (8.5-10.1); Chloride, Blood 106 mmol/L (98-108); Creatinine, Blood 0.66 mg/dL (0.60-1.20); Globulin, Blood 3.4 g/dL (2.2-4.0); Glomerular Filtration Rate >60 (60-); Glucose, Blood 107 mg/dL (70-99); Potassium, Blood 4.3 mmol/L (3.5-5.5); Sodium, Blood 136 mmol/L (136-145)
--- NOTE | 2021-05-14 07:08 | NUR ---
SHIFT SUMMARY PATIENT ALERT AND ORIENTED. NO COMPLAINTS OF PAIN. PATIENT TAKEN OFF OF AIRVO AND IS NOW ON 4 LITERS O2 VIA NASAL CANULA. IV PATENT AND FLUSHED. BED IN LOWEST POSITION WITH WHEELS LOCKED. CALL LIGHT WITHIN REACH. REPORT GIVEN TO ONCADOLFO WEAVER.
--- NOTE | 2021-05-14 18:40 | NUR ---
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 PT MAKES NO C/O PAIN OR SOB THIS SHIFT. ECHO COMPLETED THIS SHIFT, WAITING FOR RESULTS. WILL CONTINUE TO MONITOR.
--- NOTE | 2021-05-15 05:18 | NUR ---
SHIFT SUMMARY A/O, ABLE TO MAKE NEEDS KNOWN. COOPERATIVE WITH CARE. CALLS AND ANSWERS QUESTIONS APPROPRIATELY. NO C/O PAIN/DISCOMFORT. APPEARED TO REST MUCH OF THE NIGHT. REMAINS ON 4L VIA NC; STATES DYSPNEA GETTING BETTER. INDPENDENT IN ROOM. NO ACUTE CHANGES NOTED. BED REMAINS IN LOWEST POSITION. CALL LIGHT AND BELONGINGS WITHIN REACH. CONTINUE WITH CURRENT PLAN OF CARE. REPORT TO ONCOMING RN.
[2021-05-15 05:40] LABS: BASOPHILS ABSOLUTE AUTO 0.02 K/mm3 (0.00-0.23); BASOPHILS PERCENT AUTO 0 % (0-2); EOSINOPHILS ABSOLUTE AUTO 0.01 K/mm3 (0.00-0.68); EOSINOPHILS PERCENT AUTO 0 % (0-6); Hematocrit 42.5 % (37.0-53.0); Hemoglobin 14.7 g/dL (13.5-17.5); IMMATURE GRAN ABSOLUTE AUTO 0.14 K/mm3 (0.00-0.10); IMMATURE GRAN PERCENT AUTO 2 % (0-1); LYMPHOCYTES ABSOLUTE AUTO 1.02 K/mm3 (0.84-5.20); LYMPHOCYTES PERCENT AUTO 14 % (21-46); MONOCYTES PERCENT AUTO 9 % (4-13); Mean Corpuscular HGB 29.7 pg (26.0-34.0); Mean Corpuscular HGB Conc 34.6 g/dL (31.5-36.5); Mean Corpuscular Volume 86 fL (80-100); Mean Platelet Volume 8.6 fL (9.1-12.4); NEUTROPHILS ABSOLUTE AUTO 5.63 K/mm3 (1.96-9.15); NEUTROPHILS PERCENT AUTO 75 % (41-73); Platelet Count 545 K/mm3 (150-400); RDW Coefficient Variation 11.6 % (11.7-14.2); RDW Standard Deviation 36.7 fL (35.1-46.3); Red Blood Cell Count 4.95 M/mm3 (4.30-5.90); White Blood Cell Count 7.52 K/mm3 (4.00-11.30)
[2021-05-15 06:04] LABS: Alanine Aminotransfer (ALT/SGP 391 U/L (12-78); Albumin, Blood 2.6 g/dL (3.4-5.0); Albumin/Globulin Ratio 0.8 (0.8-1.8); Alk Phos 67 U/L (50-136); Anion Gap 5 mmol/L (6-16); Aspartate Aminotrans (AST/SGOT 42 U/L (12-37); Bilirubin, Total 0.6 mg/dL (0.1-1.0); Blood Urea Nitrogen 21 mg/dL (8-24); Bun/Creatinine Ratio 26.1 (12.0-20.0); CO2, Blood 30 mmol/L (21-32); Chloride, Blood 103 mmol/L (98-108); Creatinine, Blood 0.81 mg/dL (0.60-1.20); Globulin, Blood 3.3 g/dL (2.2-4.0); Glomerular Filtration Rate >60 (60-); Glucose, Blood 82 mg/dL (70-99); Potassium, Blood 4.5 mmol/L (3.5-5.5); Sodium, Blood 138 mmol/L (136-145); Total Protein, Blood 5.9 g/dL (6.4-8.2)
--- NOTE | 2021-05-15 11:11 | NUR ---
Update 05/13/21: Per chart review, today chen day 13 of hospital admission. On day 12, oxygen requirements had decreased to 4 LPM. Pt. feeling better. no N/V/D. Ordered portable oxygen for pt. that was delivered yesterday to his room by Lynda. Pt. has home O2 already. Lynda prepared to address any additional oxygen needs patient might have. Pt. will D/C on Elquis 2.5 mg BID x 1 month. Samples (one month supply) placed in lock box outside of patient's room. Pt. scheduled for a hospital F/U prior to the weekend via telehealth with Dr. Lenz on 05/19/21 at 12pm. Discharge letter with appt. time/date placed in lock box outside of room as well. Anticipate discharge today.
[2021-05-15] MEDS ORDERED: Acetaminophen650 M1 PO (16:33)
[2021-05-15] MEDS ORDERED: ALBU90OI INH (16:34)
[2021-05-15] MEDS ORDERED: GUAI600T33 PO (16:35)
[2021-05-15] MEDS ORDERED: MOME220I INH (16:35)
[2021-05-15] MEDS ORDERED: Flonase 0.05% N16 GM (16:35)
[2021-05-15] MEDS ORDERED: Prednisone10 MG PO (16:38)
[2021-05-15] MEDS ORDERED: ELIQUIS2.5 MG PO (16:38)
--- NOTE | 2021-05-15 17:25 | NUR ---
DC NOTE: PT IV REMOVED. PT EDUCATED ON DC INSTRUCTIONS. PT VU. ADVISED TO ENSURE FOLLOW-UP WITH DR. VILLALTA ON SATURDAY VIA TELEHEATH. PT ESCORTED TO POV VIA WC BY N[employer]ARD AND PORTABLE O2 TANK AT 2 LPM VIA ND.
== END 2021-05-15 17:15 | disposition home or self-care (01) | DRG 871 ==
LOC: ER 09:06 → ERHOLD 13:47 → ER 13:47 → EOR 13:47 → MEDS 17:44
PROVIDERS: Family Medicine; Hospitalist; Physician Assistant; Student in an Organized Health Care Education/Training Program; ADMIT Internal Medicine
PROC: 8E0ZXY6 Isolation (ICD-10-PCS; principal; 2021-05-02)
PROC: XW033E5 Introduction of Remdesivir Anti-infective into Peripheral Vein, Percutaneous Approach, New Technology Group 5 (ICD-10-PCS; 2021-05-02)
PROC: 3E0333Z Introduction of Anti-inflammatory into Peripheral Vein, Percutaneous Approach (ICD-10-PCS; 2021-05-02)
DX: A41.89 Other specified sepsis (principal); U07.1 COVID-19; J12.82 Pneumonia due to coronavirus disease 2019; J96.01 Acute respiratory failure with hypoxia; R65.10 Systemic inflammatory response syndrome (SIRS) of non-infectious origin without acute organ dysfunction; R59.0 Localized enlarged lymph nodes; R74.01 Elevation of levels of liver transaminase levels; R01.1 Cardiac murmur, unspecified; E88.09 Other disorders of plasma-protein metabolism, not elsewhere classified; E78.5 Hyperlipidemia, unspecified; E86.9 Volume depletion, unspecified; K75.9 Inflammatory liver disease, unspecified; M54.9 Dorsalgia, unspecified; G89.29 Other chronic pain; Z86.718 Personal history of other venous thrombosis and embolism; Z86.711 Personal history of pulmonary embolism; Z88.8 Allergy status to other drugs, medicaments and biological substances; Z79.899 Other long term (current) drug therapy
CPT/HCPCS: 36415; 71045; 71260; 80053; 82306; 82550; 82728; 83615; 83735; 83880; 84100; 84145; 84484; 85025; 85379; 86140; 86704; 86708; 86803; 87070; 87205; 87340; 93005; 93010; 93306; 94640; 94664; 94667; 94668; 94762; 96365-59; 96372-59; 96375-59; 99285-25; A9270; J0456; J1100; J1650; J2930; J3480; J7050; J7512; Q9967